=== PATIENT | female | born 1965 | race Two or more races ===

== ENCOUNTER 2016-11-23 20:41 | Inpatient (IN) | payer MEDICAID ==
[~2016-11-23] VITALS: Ht 160 cm; Wt 66.6 kg
[2016-11-23 21:24] LABS: Basophils # (auto) 0 uL; Basophils % (auto) 0.7 % (0.0-2.0); Eosinophils # (auto) 0.2 uL; Eosinophils % (auto) 3.5 % (0.0-7.0); Hematocrit 39.9 % (36.0-46.0); Hemoglobin 13.7 g/dL (12.2-16.2); Lymphocytes # (auto) 2.5 uL; Lymphocytes % (auto) 43.8 % (10.0-50.0); Mean Corpuscular Hemoglobin 31.2 pg (28.0-32.0); Mean Corpuscular Hgb Conc. 34.3 g/dL (32.0-36.0); Mean Corpuscular Volume 90.8 fL (80.0-100.0); Mean Platelet Volume 8.2 fL (7.4-10.4); Monocytes # (auto) 0.4 uL; Monocytes % (auto) 6.4 % (0.0-12.0); Neutrophils # (auto) 2.6 uL; Neutrophils % (auto) 45.6 % (37.0-80.0); Platelet Count (auto) 305 10^3/uL (140-450); White Blood Cell 5.8 10^3/uL (4.4-10.8)
[2016-11-23 21:39] LABS: INR 1.04 (0.9-1.15); Partial Thromboplastin Time 26.5 sec (22.64-33.71); Prothrombin Time 10.7 sec (9.37-12.3)
[2016-11-23 21:44] LABS: Albumin 3.3 g/dL (3.4-5.0); BUN/Creatinine Ratio 8.8; Bilirubin, Total 0.4 mg/dL (0.2-1.0); Calcium 8.7 mg/dL (8.5-10.1); Potassium 3.8 mmol/L (3.5-5.1); Total Protein 7.4 g/dL (6.4-8.2)
[2016-11-24] MEDS ORDERED: HYDROmorphone HCL 2 MG/ML VL IV ONE (00:15)
[2016-11-24] MEDS ORDERED: cefTRIAXone 1GM/50ML D5W 50 ML IV ONE (00:15)
[2016-11-24] MEDS ORDERED: ONDANSETRON HCL 4 MG/2 ML VIAL IV ONE (00:15)
[2016-11-24] MEDS ORDERED: MORPHINE SULF INJ 2 MG/ML SYRINGE 1ML IV ONE (00:30)
[2016-11-24] MEDS ORDERED: SODIUM CHLORIDE 0.9% 1,000 ML IV ONE (00:30)
[2016-11-24] MEDS ORDERED: KETOROLAC TROMETH 30 MG/ML 1ML VIAL IV ONE (01:00)
[2016-11-24] MEDS ORDERED: ACETAMINOPHEN 325 MG TAB PO PRN (02:30)
[2016-11-24] MEDS ORDERED: HYDROcodone-ACET 5/325MG TAB PO PRN (02:30)
[2016-11-24] MEDS ORDERED: MORPHINE SULF INJ 2 MG/ML SYRINGE 1ML IV PRN (02:30)
[2016-11-24] MEDS ORDERED: TEMAZEPAM 15 MG CAP PO PRN (02:30)
[2016-11-24] MEDS ORDERED: PANTOPRAZOLE SODIUM 40 MG/10 ML VIAL IV ONE (02:30)
[2016-11-24] MEDS: SODIUM CHLORIDE 0.9% 1,000 ML IV SCH ×2 (03:03→16:56)
[2016-11-24] MEDS: metroNIDAZOLE 500MG/100ML 100 ML IV SCH ×4 (03:03→21:30)
[2016-11-24 03:45] VITALS: BP 95/69
[2016-11-24] MEDS ORDERED: ONDA4TAB5 PO (04:32)
[2016-11-24] MEDS: PANTOPRAZOLE SODIUM 40 MG/10 ML VIAL IV SCH (08:47)
[2016-11-24 08:54] VITALS: BP 93/52
[2016-11-24 12:27] VITALS: BP 109/60
[2016-11-24 16:54] VITALS: BP 109/58
[2016-11-24 20:00] VITALS: BP 110/70
[2016-11-24] MEDS: ONDANSETRON HCL 4 MG/2 ML VIAL IV PRN (20:36)
[2016-11-24 21:30] VITALS: BP 110/70
[2016-11-24] MEDS ORDERED: cefTRIAXone 1GM/50ML D5W 50 ML IV SCH (22:00)
[2016-11-25 03:37] VITALS: BP 110/70
[2016-11-25 05:21] VITALS: BP 100/59
[2016-11-25 05:40] LABS: Basophils # (auto) 0 uL; Basophils % (auto) 0.9 % (0.0-2.0); Eosinophils # (auto) 0.1 uL; Eosinophils % (auto) 2.1 % (0.0-7.0); Hematocrit 35.8 % (36.0-46.0); Hemoglobin 12.7 g/dL (12.2-16.2); Lymphocytes # (auto) 2.3 uL; Mean Corpuscular Hemoglobin 31.6 pg (28.0-32.0); Mean Corpuscular Hgb Conc. 35.4 g/dL (32.0-36.0); Mean Corpuscular Volume 89.2 fL (80.0-100.0); Mean Platelet Volume 8.6 fL (7.4-10.4); Monocytes # (auto) 0.3 uL; Neutrophils # (auto) 2.3 uL; Platelet Count (auto) 253 10^3/uL (140-450); Red Cell Distribution Width 12.2 % (11.6-16.0)
[2016-11-25] MEDS: metroNIDAZOLE 500MG/100ML 100 ML IV SCH ×3 (05:44→21:33)
[2016-11-25 06:22] LABS: Albumin 2.7 g/dL (3.4-5.0); BUN/Creatinine Ratio 12.5; Bilirubin, Total 0.6 mg/dL (0.2-1.0); Calcium 7.8 mg/dL (8.5-10.1); Potassium 3.6 mmol/L (3.5-5.1); Total Protein 6.1 g/dL (6.4-8.2)
[2016-11-25 09:08] VITALS: BP 92/60
[2016-11-25] MEDS ORDERED: PARoxetine 20 MG TAB PO SCH (10:00)
[2016-11-25] MEDS: LEVOFLOXACIN 500MG 100 ML IV SCH (10:42)
[2016-11-25] MEDS: PANTOPRAZOLE SODIUM 40 MG/10 ML VIAL IV SCH (10:43)
[2016-11-25] MEDS: ONDANSETRON HCL 4 MG/2 ML VIAL IV PRN (11:10)
[2016-11-25 11:34] LABS: Urine Bilirubin Negative (Negative); Urine Blood Negative /uL (Negative); Urine Color Yellow (Yellow); Urine Glucose Normal (Normal); Urine Mucus FEW (None Seen); Urine Nitrite Negative (Negative); Urine RBC <1 /hpf (0 - 4); Urine Squamous Epithelial Cell FEW /hpf (<5); Urine Urobilinogen Normal (Negative); Urine pH 5.5 (5.0-8.0)
[2016-11-25 11:42] LABS: Urine Ketone 2+ (Negative)
[2016-11-25 13:00] VITALS: BP_SYST 111; BP_SYST 98; BP_DIAS 56; BP_DIAS 72
[2016-11-25 17:06] VITALS: BP 92/54
[2016-11-25 21:30] VITALS: BP 108/62
[2016-11-26] MEDS: SODIUM CHLORIDE 0.9% 1,000 ML IV SCH ×3 (04:21→22:29)
[2016-11-26 05:00] VITALS: BP 108/63
[2016-11-26] MEDS: metroNIDAZOLE 500MG/100ML 100 ML IV SCH ×3 (05:25→23:57)
[2016-11-26] MEDS: ONDANSETRON HCL 4 MG/2 ML VIAL IV PRN (05:31)
[2016-11-26] MEDS ORDERED: BUPIVACAINE 0.25% INJ 50ML VIAL ONE (09:03)
[2016-11-26] MEDS ORDERED: ceFAZolin 1GM VL ONE (09:03)
[2016-11-26] MEDS ORDERED: cefTRIAXone SOD 1,000 MG VL ONE (09:17)
[2016-11-26 09:21] VITALS: BP 108/64
[2016-11-26] MEDS ORDERED: IOHEXOL 300 MG/ML 100ML BOTTLE IJ ONE (09:26)
[2016-11-26] MEDS: PANTOPRAZOLE SODIUM 40 MG/10 ML VIAL IV SCH (10:00)
[2016-11-26] MEDS: LEVOFLOXACIN 500MG 100 ML IV SCH (10:00)
[2016-11-26] MEDS ORDERED: SODIUM CHLORIDE LOCK 20 ML ONE (10:09)
[2016-11-26] MEDS ORDERED: fentaNYL CITRATE 100 MCG/2 ML VL ONE (10:09)
[2016-11-26] MEDS ORDERED: ONDANSETRON HCL 4 MG/2 ML VIAL ONE (10:09)
[2016-11-26] MEDS ORDERED: NEOSTIGMINE 1 MG/ML INJ (10mg/10ML VIAL) ONE (10:09)
[2016-11-26] MEDS ORDERED: ROCURONIUM 10MG/ML 10ML VIAL IV ONE (10:09)
[2016-11-26] MEDS ORDERED: MIDAZOLAM HCL 1MG/1ML-2 ML VIAL ONE (10:09)
[2016-11-26] MEDS ORDERED: GLYCOPYRROLATE 0.2 MG/ML 1ML VIAL ONE (10:09)
[2016-11-26] MEDS ORDERED: KETOROLAC TROMETH 60MG/2ML VIAL IM ONE (10:09)
[2016-11-26] MEDS ORDERED: MEPERIDINE HCL (50 MG/ML) 1 ML VIAL ONE (10:09)
[2016-11-26] MEDS ORDERED: PROMETHAZINE HCL 25 MG/ML 1ML IM ONE (11:15)
[2016-11-26] MEDS ORDERED: ACETAMINOPHEN IV 100 ML IV ONE (11:15)
[2016-11-26] MEDS ORDERED: HYDROmorphone HCL 2 MG/ML VL IV PRN (11:15)
[2016-11-26] MEDS ORDERED: KETOROLAC TROMETH 30 MG/ML 1ML VIAL IV ONE (11:15)
[2016-11-26] MEDS ORDERED: BUPIVACAINE 0.25% INJ 50ML VIAL IJ ONE (11:48)
[2016-11-26 17:35] VITALS: BP 118/75
[2016-11-26 22:00] VITALS: BP 134/72
[2016-11-27] MEDS: metroNIDAZOLE 500MG/100ML 100 ML IV SCH ×3 (04:57→21:48)
[2016-11-27 04:59] VITALS: BP 101/64
[2016-11-27 06:11] LABS: Basophils # (auto) 0 uL; Basophils % (auto) 0.3 % (0.0-2.0); Eosinophils # (auto) 0 uL; Hematocrit 39.8 % (36.0-46.0); Hemoglobin 13.6 g/dL (12.2-16.2); Lymphocytes % (auto) 12.8 % (10.0-50.0); Mean Corpuscular Hemoglobin 30.5 pg (28.0-32.0); Mean Corpuscular Volume 89.8 fL (80.0-100.0); Mean Platelet Volume 8.6 fL (7.4-10.4); Monocytes # (auto) 0.2 uL; Monocytes % (auto) 3.2 % (0.0-12.0); Neutrophils # (auto) 6.4 uL; Neutrophils % (auto) 83.7 % (37.0-80.0); Platelet Count (auto) 288 10^3/uL (140-450); Red Cell Distribution Width 12.4 % (11.6-16.0); White Blood Cell 7.6 10^3/uL (4.4-10.8)
[2016-11-27 06:26] LABS: BUN/Creatinine Ratio 7.7; Potassium 3.4 mmol/L (3.5-5.1)
[2016-11-27 08:11] VITALS: BP 115/62
[2016-11-27] MEDS: SODIUM CHLORIDE 0.9% 1,000 ML IV SCH ×2 (08:29→18:29)
[2016-11-27] MEDS: LEVOFLOXACIN 500MG 100 ML IV SCH (10:27)
[2016-11-27] MEDS: PANTOPRAZOLE SODIUM 40 MG/10 ML VIAL IV SCH (10:27)
[2016-11-27 11:19] VITALS: BP 121/59
[2016-11-27] MEDS ORDERED: POTASSIUM CHL 20 Meq TABLET PO ONE (12:15)
[2016-11-27 16:21] VITALS: BP 121/69
[2016-11-27 17:12] VITALS: BP 121/69
[2016-11-27 22:01] VITALS: BP 133/68
[2016-11-28] MEDS: SODIUM CHLORIDE 0.9% 1,000 ML IV SCH ×2 (03:16→15:17)
[2016-11-28 05:11] VITALS: BP 119/74
[2016-11-28] MEDS: metroNIDAZOLE 500MG/100ML 100 ML IV SCH ×2 (05:24→15:17)
[2016-11-28 05:26] LABS: Basophils # (auto) 0.1 uL; Basophils % (auto) 1.9 % (0.0-2.0); Eosinophils # (auto) 0.1 uL; Eosinophils % (auto) 0.9 % (0.0-7.0); Hematocrit 37.3 % (36.0-46.0); Hemoglobin 12.7 g/dL (12.2-16.2); Lymphocytes # (auto) 1.8 uL; Lymphocytes % (auto) 32.3 % (10.0-50.0); Mean Corpuscular Hemoglobin 30.3 pg (28.0-32.0); Mean Corpuscular Volume 89.3 fL (80.0-100.0); Mean Platelet Volume 8.7 fL (7.4-10.4); Monocytes # (auto) 0.4 uL; Monocytes % (auto) 7.7 % (0.0-12.0); Neutrophils # (auto) 3.2 uL; Neutrophils % (auto) 57.2 % (37.0-80.0); Platelet Count (auto) 271 10^3/uL (140-450); Red Cell Distribution Width 12.4 % (11.6-16.0); White Blood Cell 5.5 10^3/uL (4.4-10.8)
[2016-11-28 05:51] LABS: Albumin 2.6 g/dL (3.4-5.0); BUN/Creatinine Ratio 5.7; Calcium 7.6 mg/dL (8.5-10.1)
[2016-11-28 06:02] LABS: Bilirubin, Total 0.6 mg/dL (0.2-1.0)
[2016-11-28] MEDS: PANTOPRAZOLE SODIUM 40 MG/10 ML VIAL IV SCH (09:29)
[2016-11-28] MEDS: LEVOFLOXACIN 500MG 100 ML IV SCH (09:29)
[2016-11-28] MEDS ORDERED: PROM25TA5 PO (11:43)
[2016-11-28 13:52] VITALS: BP 123/70
[2016-11-28 17:00] VITALS: BP 112/73
== END 2016-11-28 18:42 | disposition home or self-care (01) | DRG 263 ==
LOC: ER 20:46 → OVERFLOW 20:47 → WEST WING 11-24 03:35
PROVIDERS: ADMIT Nurse Practitioner; ATTEND Internal Medicine
PROC: 0FT44ZZ Resection of Gallbladder, Percutaneous Endoscopic Approach (ICD-10-PCS; principal; 2016-11-26 10:27)
DX: K80.00 Calculus of gallbladder with acute cholecystitis without obstruction (principal); K85.00 Idiopathic acute pancreatitis without necrosis or infection; E44.0 Moderate protein-calorie malnutrition; E66.9 Obesity, unspecified; E86.0 Dehydration; E87.6 Hypokalemia; K82.8 Other specified diseases of gallbladder; Z87.11 Personal history of peptic ulcer disease; Z68.26 Body mass index [BMI] 26.0-26.9, adult
CPT/HCPCS: 36415; 76705; 80048; 80053; 81001; 82150; 83690; 83735; 84702; 85025; 85610; 85730; 93005; 96365; 96375; C9113; J0131; J0690; J0696; J1885; J1956; J2250; J2405; J3490